=== PATIENT | male | born 1965 | race African-American/Black ===

== ENCOUNTER 2016-11-16 16:15 | Emergency (ER) | payer OTHER ==
[~2016-11-16] VITALS: Ht 167.6 cm; Wt 82.0 kg
[~2016-11-16 16:15] MED LIST: ATOR20TA PO; EMTR1TAB11 PO; RITO100T PO
[2016-11-16 17:29] VITALS: BP 123/84
== END 2016-11-16 20:50 | disposition left against medical advice (07) ==
LOC: ER 16:15
DX: M54.5 Low back pain (principal); Z53.21 Procedure and treatment not carried out due to patient leaving prior to being seen by health care provider